=== PATIENT | male | born 1975 | race Caucasian/White ===

== ENCOUNTER → 2019-02-16 | Outpatient (CLI) | payer OTHER ==
[~2019-02-16] MED LIST: AMBEREN; FLEXERIL PO; HYDROXYZINE HCL25 M1 PO; LEXAPRO 10 MG T10 MG; VITAMINC500; XANAX 1 MG TABLE1 MG PO
== END ==
LOC: M.PC 07:00
DX: M51.36 Other intervertebral disc degeneration, lumbar region (principal); M47.816 Spondylosis without myelopathy or radiculopathy, lumbar region; G89.29 Other chronic pain; M25.551 Pain in right hip; M79.604 Pain in right leg; F17.210 Nicotine dependence, cigarettes, uncomplicated; Z79.899 Other long term (current) drug therapy

== ENCOUNTER → 2019-02-23 | Outpatient (CLI) | payer OTHER | END | disposition home or self-care (01) | LOC: M.PC 05:31 | DX: M51.16 Intervertebral disc disorders with radiculopathy, lumbar region (principal); M47.26 Other spondylosis with radiculopathy, lumbar region; G89.29 Other chronic pain; F17.210 Nicotine dependence, cigarettes, uncomplicated; F41.9 Anxiety disorder, unspecified; Z79.899 Other long term (current) drug therapy ==

== ENCOUNTER → 2019-03-14 | Outpatient (CLI) | payer OTHER | END | disposition home or self-care (01) | LOC: M.PC 05:05 | DX: M51.16 Intervertebral disc disorders with radiculopathy, lumbar region (principal); M47.26 Other spondylosis with radiculopathy, lumbar region; M54.5 Low back pain; G89.29 Other chronic pain; F17.210 Nicotine dependence, cigarettes, uncomplicated; F41.9 Anxiety disorder, unspecified; Z79.899 Other long term (current) drug therapy; Z98.890 Other specified postprocedural states ==

== ENCOUNTER → 2019-06-22 | Outpatient (CLI) | payer OTHER | LOC: M.PC 05:01 | DX: M51.36 Other intervertebral disc degeneration, lumbar region (principal); M47.816 Spondylosis without myelopathy or radiculopathy, lumbar region; G89.29 Other chronic pain; F17.210 Nicotine dependence, cigarettes, uncomplicated; Z72.89 Other problems related to lifestyle; Z79.899 Other long term (current) drug therapy ==